=== PATIENT | male | born 1995 | race African-American/Black ===

== ENCOUNTER 2023-11-15 09:28 | Emergency (ER) | payer SELFPAY ==
[2023-11-15 10:25] LABS: SARS-CoV-2 Antigen CONTROL BLUE LINE VIS/BG OK; SARS-CoV-2 Antigen Rapid Res Negative (Negative)
[2023-11-15] MEDS ORDERED: dexAMETHasone 4 MG TAB ONE (11:39)
[2023-11-15] MEDS ORDERED: AMOX/K CLAV 875 MG TAB ONE (11:39)
[2023-11-15] MEDS ORDERED: IBUPROFEN 400 MG TAB ONE (11:40)
--- NOTE | 2023-11-15 11:41 | EDPHYS ---
Physician Documentation [facility] Name: Dahlia Hernandez Age: 27 yrs Sex: Male : 1995 Arrival Date: 11/15/2023 Time: 09:28 Bed 11 Private MD: ED Physician Alexys Fisher HPI: 11/14 11:36 This 27 yrs old Black Male presents to ER via Ambulatory with complaints of Flu alok Symptoms. 11:36 The patient or guardian reports airway noise, cough, flu symptoms, arthralgias, alok low-grade fever, myalgias. Onset: The symptoms/episode began/occurred 3 day(s) ago. Modifying factors: The symptoms are alleviated by nothing. the symptoms are aggravated by nothing. Severity of symptoms: At their worst the symptoms were moderate, in the emergency department the symptoms are unchanged. Associated signs and symptoms: The patient has no apparent associated signs or symptoms. Modifying factors: The symptoms are alleviated by nothing, the symptoms are aggravated by nothing. Severity of symptoms: At their worst the symptoms were mild in the emergency department the symptoms have improved mildly. The patient has experienced similar episodes in the past, several times. Historical: - Allergies: 09:59 No Known Allergies; ap3 - Home Meds: 09:59 None [Active]; ap3 - PMHx: 09:59 None; ap3 - Immunization history:: Adult Immunizations up to date. - Infectious Disease History:: Denies. - Social history:: Smoking status: Patient denies any tobacco usage or history of. - Family history:: not pertinent. ROS: 11:36 Constitutional: Negative for fever, chills, and weight loss, Eyes: Negative for injury, alok pain, redness, and discharge, ENT: Negative for injury, pain, and discharge, Neck: Negative for injury, pain, and swelling, Cardiovascular: Negative for chest pain, palpitations, and edema, Abdomen/GI: Negative for abdominal pain, nausea, vomiting, diarrhea, and constipation, Back: Negative for injury and pain, : Negative for injury, bleeding, discharge, and swelling, MS/Extremity: Negative for injury and deformity, Skin: Negative for injury, rash, and discoloration, Neuro: Negative for headache, weakness, numbness, tingling, and seizure, Psych: Negative for depression, anxiety, suicide ideation, homicidal ideation, and hallucinations, Allergy/Immunology: Negative for hives, rash, and allergies, Endocrine: Negative for neck swelling, polydipsia, polyuria, polyphagia, and marked weight changes, Hematologic/Lymphatic: Negative for swollen nodes, abnormal bleeding, and unusual bruising, 11:36 Respiratory: Positive for cough, "sounds productive", Exam: 11:36 Constitutional: This is a well developed, well nourished patient who is awake, alert, alok and in no acute distress. Head/Face: Normocephalic, atraumatic. Eyes: Pupils equal round and reactive to light, extra-ocular motions intact. Lids and lashes normal. Conjunctiva and sclera are non-icteric and not injected. Cornea within normal limits. Periorbital areas with no swelling, redness, or edema. Neck: Trachea midline, no thyromegaly or masses palpated, and no cervical lymphadenopathy. Supple, full range of motion without nuchal rigidity, or vertebral point tenderness. No Meningismus. Chest/axilla: Normal chest wall appearance and motion. Nontender with no deformity. No lesions are appreciated. Cardiovascular: Regular rate and rhythm with a normal S1 and S2. No gallops, murmurs, or rubs. Normal PMI, no JVD. No pulse deficits. Respiratory: Lungs have equal breath sounds bilaterally, clear to auscultation and percussion. No rales, rhonchi or wheezes noted. No increased work of breathing, no retractions or nasal flaring. Abdomen/GI: Soft, non-tender, with normal bowel sounds. No distension or tympany. No guarding or rebound. No evidence of tenderness throughout. Back: No spinal tenderness. No costovertebral tenderness. Full range of motion. Male : Normal genitalia with no discharge or lesions. Skin: Warm, dry with normal turgor. Normal color with no rashes, no lesions, and no evidence of cellulitis. MS/ Extremity: Pulses equal, no cyanosis. Neurovascular intact. Full, normal range of motion. Neuro: Awake and alert, GCS 15, oriented to person, place, time, and situation. Cranial nerves II-XII grossly intact. Motor strength 5/5 in all extremities. Sensory grossly intact. Cerebellar exam normal. Normal gait. Psych: Awake, alert, with orientation to person, place and time. Behavior, mood, and affect are within normal limits. 11:36 ENT: Mouth: is normal, no acute changes, Lips: normal, Oral mucosa: normal, Gums: normal with healthy appearance, Posterior pharynx: is normal, no acute changes, Vital Signs: 09:50 BP 129 / 78; Pulse 98; Resp 17; Pulse Ox 95% on R/A; bc6 09:51 Temp 99; bc6 09:57 Temp 99.6(O); ap3 09:57 Weight 95.25 kg; Height 5 ft. 5 in. ; ap3 11:45 BP 113 / 89; Pulse 88; Resp 18; Temp 98.9; Pulse Ox 98% ; ap3 09:57 Body Mass Index 34.95 (95.25 kg, 165.1 cm) ap3 MDM: 09:33 Patient medically screened. alok 11:39 Differential diagnosis: obstructed airway, bronchitis, flu, URI. Antibiotic alok administration: The patient is discharged and will get outpatient antibiotics, Amoxicillin. Differential Diagnosis: Obstructed Airway Bronchitis Influenza Upper Respiratory Infection Sinusitis Pharyngitis Otitis Media Viral Syndrome Pneumonia. Data reviewed: vital signs, nurses notes, lab test result(s). Consideration of Admission/Observation Escalation of care including admission/observation considered. I considered the following discharge prescriptions or medication management in the emergency department Medications were administered in the Emergency Department. See MAR. Test considered but Not performed: Labs: NO CBC , NO COMP MET. Historians other than the Patient: PT WELL INFORMED. Care significantly affected by the following chronic conditions: NONE. 11/14 09:36 Order name: Influenza Screen (a \\T\\ B); Complete Time: 11:17 [facility] 11/14 09:36 Order name: SARS-COV-2 Antigen Rapid; Complete Time: 11:17 [facility] 11/14 09:36 Order name: Strep [facility] 11/14 10:29 Order name: Throat Culture EDMS Administered Medications: 11:45 Drug: Ibuprofen PO 800 mg PO once Route: PO; ap3 11:47 Follow up: Response: Medication administered at discharge. ap3 11:45 Drug: Amoxicillin-Clavulanate PO 875 mg PO once Route: PO; ap3 11:47 Follow up: Response: Medication administered at discharge. ap3 11:45 Drug: Dexamethasone PO 4 mg PO once Route: PO; ap3 11:46 Follow up: Response: Medication administered at discharge. ap3 Disposition Summary: 11/15/23 11:41 Discharge Ordered Notes: Location: Home [facility] Problem: new [facility] Symptoms: have improved [facility] Condition: Stable [facility] Diagnosis - Acute upper respiratory infection, unspecified alok - Cough alok - Fever, unspecified alok Followup: [facility] - With: Private Physician - When: 2 - 3 days - Reason: Recheck today's complaints, Continuance of care, Re-evaluation by your physician Discharge Instructions: - Discharge Summary Sheet [facility] - Acetaminophen Dosage Chart, Pediatric alok - Upper Respiratory Infection, Adult alok - Cool Mist Vaporizer alok - Upper Respiratory Infection, Adult, [id number] alok - Cough, Adult, [id number] alok - Cough, Adult [facility] Forms: - Medication Reconciliation Form [facility] - Thank You Letter [facility] - Antibiotic Education [facility] - Prescription Opioid Use [facility] - Patient Portal Instructions [facility] - Leadership Thank You Letter [facility] Prescriptions: - Augmentin 875-125 mg Oral Tablet - take 1 tablet ORAL route every 12 hours for 10 days; 20 tablet; Refills: 0, [facility] Product Selection Permitted - Jyoti-D 12 Hour 60-120 mg Oral Tablet Sustained Release 12 hr - take 1 tablet ORAL route every 12 hours As needed; 20 tablet; Refills: 0, [facility] Product Selection Permitted - Tessalon Perles 100 mg Oral capsule - take 2 capsule ORAL route every 8 hours As needed; 30 capsule; Refills: 0, [facility] Product Selection Permitted - Medrol (Ronnell) 4 mg Oral Tablets, Dose Pack - take 1 tablet ORAL route as directed - follow package instructions; 1 packet; [facility] Refills: 0, Product Selection Permitted Signatures: Dispatcher [employer] Alexys Meek MD MD cha Prokisch, Amanda, RN RN ap3
--- NOTE | 2023-11-15 11:41 | ER ---
Nurse's Notes [facility] Name: Dahlia Hernandez Age: 27 yrs Sex: Male : 1995 Arrival Date: 11/15/2023 Time: 09:28 Bed 11 Private MD: Diagnosis: Acute upper respiratory infection, unspecified;Cough;Fever, unspecified Presentation: 11/14 09:58 Chief complaint: Patient states: coughing started Monday11/12/2023. patient states he ap3 is having body aches, nose bleeds and sore throat. Coronavirus screen: At this time, the client does not indicate any symptoms associated with coronavirus-19. Ebola Screen: No symptoms or risks identified at this time. Initial Sepsis Screen: Does the patient meet any 2 criteria? HR > 90 bpm. Does the patient have a suspected source of infection? No. Patient's initial sepsis screen is negative. Risk Assessment: Do you want to hurt yourself or someone else? Patient reports no desire to harm self or others. Onset of symptoms was November 12, 2023. 09:58 Method Of Arrival: Ambulatory ap3 09:58 Acuity: MODE 4 ap3 Triage Assessment: 10:00 General: Appears ill, Behavior is calm, cooperative, appropriate for age. Pain: ap3 Complains of pain in generalized bodyaches Pain began gradually. Neuro: Level of Consciousness is awake, alert, obeys commands. Cardiovascular: Patient's skin is warm and dry. Respiratory: Reports cough that is Airway is patent Respiratory effort is even, unlabored, Respiratory pattern is regular, symmetrical. Historical: - Allergies: 09:59 No Known Allergies; ap3 - Home Meds: 09:59 None [Active]; ap3 - PMHx: 09:59 None; ap3 - Immunization history:: Adult Immunizations up to date. - Infectious Disease History:: Denies. - Social history:: Smoking status: Patient denies any tobacco usage or history of. - Family history:: not pertinent. Screenin:00 Abuse screen: Denies threats or abuse. Nutritional screening: No deficits noted. ap3 Tuberculosis screening: No symptoms or risk factors identified. 10:33 [facility] ED Fall Risk Assessment (Adult) History of falling in the last 3 months, ap3 including since admission No falls in past 3 months (0 pts) Confusion or Disorientation No (0 pts) Intoxicated or Sedated No (0 pts) Impaired Gait No (0 pts) Mobility Assist Device Used No (0 pt) Altered Elimination No (0 pt) Score/Fall Risk Level 0 - 2 = Low Risk Oriented to surroundings, Maintained a safe environment, Educated pt \T\ family on fall prevention, incl call for assistance when getting out of bed, Assessed \T\ reinforced patient's understanding of fall precautions, Provided non-skid footwear, Hourly rounding (assess needs \T\ fall precautionary measures) done, Used ambulatory aids as needed (educated on \T\ assisted with), Used gait belt as appropriate. Vital Signs: 09:50 BP 129 / 78; Pulse 98; Resp 17; Pulse Ox 95% on R/A; bc6 09:51 Temp 99; bc6 09:57 Temp 99.6(O); ap3 09:57 Weight 95.25 kg; Height 5 ft. 5 in. ; ap3 11:45 BP 113 / 89; Pulse 88; Resp 18; Temp 98.9; Pulse Ox 98% ; ap3 09:57 Body Mass Index 34.95 (95.25 kg, 165.1 cm) ap3 ED Course: 09:30 Patient arrived in ED. im 09:33 Alexys Fisher MD is Attending Physician. alok 09:59 Triage completed. ap3 10:01 Arm band placed on right wrist. ap3 10:01 Patient has correct armband on for positive identification. Placed in gown. Bed in low ap3 position. Call light in reach. Side rails up X 1. 10:33 Jeanie Martinez, RAÚL is Primary Nurse. ap3 10:34 No provider procedures requiring assistance completed. ap3 11:46 Provided Education on: medication prior to administration. ap3 11:46 Patient did not have IV access during this emergency room visit. ap3 Administered Medications: 11:45 Drug: Ibuprofen PO 800 mg PO once Route: PO; ap3 11:47 Follow up: Response: Medication administered at discharge. ap3 11:45 Drug: Amoxicillin-Clavulanate PO 875 mg PO once Route: PO; ap3 11:47 Follow up: Response: Medication administered at discharge. ap3 11:45 Drug: Dexamethasone PO 4 mg PO once Route: PO; ap3 11:46 Follow up: Response: Medication administered at discharge. ap3 Medication: 10:33 VIS not applicable for this client. ap3 Outcome: 11:41 Discharge ordered by . alok 11:53 Discharged to home ambulatory, ap3 11:53 Condition: good 11:53 Discharge instructions given to patient, Instructed on discharge instructions, follow up and referral plans. medication usage, Demonstrated understanding of instructions, follow-up care, medications, Prescriptions given X 4, 11:54 Patient left the ED. ap3 Signatures: Alexys Fisher MD MD cha Prokisch, Amanda RN RN ap3 Camelia Torres 6 Ana Paula Esqueda
[2023-11-15 12:05] VITALS: BP 113/89; TEMP 98.9; O2SAT 98
== END 2023-11-15 11:54 | disposition home or self-care (01) ==
LOC: ER 09:28
DX: J06.9 Acute upper respiratory infection, unspecified (principal); R50.9 Fever, unspecified; Z11.52 Encounter for screening for COVID-19
CPT/HCPCS: 36415; 87070; 87081; 87804; 87811; J8540